=== PATIENT | male | born 1955 | race Caucasian/White ===

== ENCOUNTER 2018-12-05 00:09 | Emergency (ER) | payer BC ==
[~2018-12-05] VITALS: Ht 182.9 cm; Wt 93.0 kg
[2018-12-05] MEDS ORDERED: KLONOPIN2 MG PO (00:27)
[2018-12-05] MEDS ORDERED: MELATONIN1 M1 SL (00:27)
[2018-12-05] MEDS ORDERED: CRESTOR10 M1 ORAL (00:27)
[2018-12-05] MEDS ORDERED: SINEMET CR 50/201 EA ORAL (00:27)
[2018-12-05 00:30] VITALS: BP 114/81
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
[2018-12-05] MEDS ORDERED: CYCLOBENZAPRINE10 MG ORAL (00:48)
[2018-12-05] MEDS ORDERED: NORCO 5-325 TA1 EACH ORAL (00:48)
[2018-12-05 01:15] VITALS: BP 112/74
[2018-12-05] MEDS ORDERED: Norco 5mg/325mg tab ORAL ONE (01:15)
--- NOTE | 2018-12-05 01:15 | NUR ---
ER Nurse Note: Patient seen, treated, medically cleared for discharged from medical care. Discharge instructions and prescriptions given with repeat verbalization from pt. Instructed pt to follow up with primary care physican within one week. Pt awake, alert and oriented x4. All medical devices such as ID band were removed. Patient ambulated out with all personal belongings with steady gait.
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
== END 2018-12-05 01:15 | disposition home or self-care (01) ==
LOC: EMR 01:14
DX: M54.2 Cervicalgia (principal); M54.5 Low back pain; V43.52XA Car driver injured in collision with other type car in traffic accident, initial encounter; Y92.410 Unspecified street and highway as the place of occurrence of the external cause; G20 Parkinson's disease
CPT/HCPCS: 99283